=== PATIENT | male | born 1955 | race African-American/Black ===

== ENCOUNTER → 2018-06-12 | Outpatient (CLI) | payer OTHER ==
[2018-06-12 11:18] LABS: ABSOLUTE EOSINOPHILS # (AUTO) 0.1 10^3/uL (0.0-0.6); ABSOLUTE LYMPHOCYTES (AUTO) 1.3 10^3/uL (0.5-4.7); ABSOLUTE MONOCYTES (AUTO) 0.6 10^3/uL (0.1-1.4); ABSOLUTE NEUT (AUTO) 2.1 10^3/uL (1.7-8.2); BASOPHILS % (AUTO) 0.6 % (0-2); EOSINOPHILS % (AUTO) 3.1 % (0-6); HEMATOCRIT 34.4 % (37.9-51.0); HEMOGLOBIN 11.7 g/dL (13.5-17.0); LYMPHOCYTES % (AUTO) 30.9 % (13-45); MEAN CORPUSCULAR HEMOGLOBIN 30.4 pg (27.0-33.4); MEAN CORPUSCULAR HGB CONC 34.1 g/dL (32.0-36.0); MEAN CORPUSCULAR VOLUME 89 fl (80-97); MONOCYTES % (AUTO) 13.6 % (3-13); PLATELET COUNT 175 10^3/uL (150-450); RED BLOOD COUNT 3.86 10^6/uL (4.35-5.55); RED CELL DISTRIBUTION WIDTH 13.9 % (11.5-14.0); SEGMENTED NEUTROPHILS % (AUTO) 51.8 % (42-78); TOTAL CELLS COUNTED % (AUTO) 100 %; WHITE BLOOD COUNT 4.1 10^3/uL (4.0-10.5)
[2018-06-12 11:44] LABS: ALANINE AMINOTRANSFERASE 30 U/L (21-72); ALBUMIN 4.6 g/dL (3.5-5.0); ALKALINE PHOSPHATASE 83 U/L (38-126); ANION GAP 12 (5-19); ASPARTATE AMINO TRANSFERASE 34 U/L (17-59); BILIRUBIN,DIRECT 0.1 mg/dL (0.0-0.4); BILIRUBIN,TOTAL 0.4 mg/dL (0.2-1.3); BLOOD UREA NITROGEN 29 mg/dL (7-20); CALCIUM 9.6 mg/dL (8.4-10.2); CARBON DIOXIDE 32 mmol/L (22-30); CHLORIDE 101 mmol/L (98-107); CHOLESTEROL 135.16 mg/dL (0-200); GLUCOSE 91 mg/dL (75-110); POTASSIUM 3.9 mmol/L (3.6-5.0); SODIUM 144.6 mmol/L (137-145); TOTAL PROTEIN 7.7 g/dL (6.3-8.2); TRIGLYCERIDES 61 mg/dL (<150); URIC ACID 11.3 mg/dL (3.5-8.5)
[2018-06-12 11:55] LABS: DIRECT LDL 67 mg/dL (<100)
== END ==
LOC: CCC 10:04
DX: I25.10 Atherosclerotic heart disease of native coronary artery without angina pectoris (principal); I10 Essential (primary) hypertension; I50.1 Left ventricular failure, unspecified
CPT/HCPCS: 36415; 80053; 80061; 83735; 84550; 85025

== ENCOUNTER 2018-07-06 11:24 | Observation (INO) | payer OTHER ==
[2018-07-06] MEDS ORDERED: ASPIRIN 81 MG TABLET, CHEWABLE PO ONE (11:49)
--- NOTE | 2018-07-06 11:56 | ER Document Report ---
ED General - General Chief Complaint: Dizziness Stated Complaint: DIZZY Time Seen by Provider: 07/06/18 11:42 Mode of Arrival: Medic Information source: Patient, Emergency Med Personnel Notes: Patient is a 63-year-old male who presents to the emergency department via EMS from the [facility] with complaints of dizziness and chest pain. Patient has a significant cardiac history to include hypertension, hyperlipidemia, myocardial infarction and pacemaker. Patient reports this feels similar to when he has had an OH in the past. 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 He does report being compliant with his medications. Patient stated to the nurse and EMS that the pain radiated from his mid chest into his left arm. At the time of arrival patient reports the pain has resolved. TRAVEL OUTSIDE OF THE [place] IN LAST 30 DAYS: No Past Medical History - General Information source: Patient, Law Enforcement - Social History Smoking Status: Unknown if Ever Smoked Frequency of alcohol use: None Drug Abuse: None Family History: None - Past Medical History Cardiac Medical History: Reports: Hx Congestive Heart Failure, Hx Coronary Artery Disease, Hx Heart Attack, Hx Hypercholesterolemia, Hx Hypertension, Hx Peripheral Vascular Disease Past Surgical History: Reports: Hx Pacemaker - AICD Review of Systems - Review of Systems Cardiovascular: Chest pain, Heart racing, Dizziness, Lightheaded -: Yes All other systems reviewed and negative Physical Exam - Vital signs Vitals: Resp Pulse Ox 26 H 97 07/06/18 11:33 07/06/18 11:33 - Notes Notes: PHYSICAL EXAMINATION: GENERAL: Well-appearing, well-nourished and in no moderate distress. HEAD: Atraumatic, normocephalic. EYES: Pupils equal round and reactive to light, extraocular movements intact, sclera anicteric, conjunctiva are normal. ENT: Nares patent, oropharynx clear without exudates. Moist mucous membranes. NECK: Normal range of motion, supple without lymphadenopathy LUNGS: Breath sounds clear to auscultation bilaterally and equal. No wheezes rales or rhonchi. HEART: Regular rate and rhythm without murmurs ABDOMEN: Soft, nontender, nondistended abdomen. No guarding, no rebound. No masses appreciated. Musculoskeletal: Normal range of motion, no pitting or edema. No cyanosis. NEUROLOGICAL: Cranial nerves grossly intact. Normal speech. Normal sensory, motor exams PSYCH: Normal mood, normal affect. SKIN: Warm, Dry, normal turgor, no rashes or lesions noted. Course - Re-evaluation Re-evalutation: 07/06/18 12:08 Called to patient's bedside as patient is having an episode of hypotension with an arrhythmia. Monitor shows short run of ventricular tachycardia, it lasted approximately one minute. By the time I was at the bedside patient had resumed his original cardiac rhythm. 07/06/18 12:30 Stated the patient's bedside for some time, patient remains stable, blood pressure improving, patient is sinus tach on the monitor heart rate 105, no evidence of ventricular tachycardia since the isolated incident earlier. Dr. Payne has been to the bedside to evaluate the patient as well. 07/06/18 13:45 CBC is unremarkable. Initial set of cardiac enzymes are negative. Patient does have elevated BUN and creatinine however this is unchanged from his baseline on record at [place]. EKG with no ST segment elevations or depressions. Ventricular paced rhythm. Chest x-ray with cardiomegaly but an otherwise unremarkable with no evidence of CHF. 07/06/18 14:24 Patient resting comfortably, states that his symptoms have now resolved. Patient's heart rate is 64, pulse ox is 100% on 2 L, blood pressure 117/84. Hepatitis profile and HIV testing were obtained from this patient with his consent as one of the EMS workers suffered a needlestick while starting the patient's IV. 07/06/18 14:[address] Martin who agrees to accept patient for admission. 07/06/18 14:[address] Parham, he will call back if patient can be accepted for admission. 07/06/18 15:15 Patient discussed with hospitalist again and accepted for admission by Dr. Liu. - Vital Signs Vital signs: Temp Pulse Resp BP Pulse Ox 18 123/84 99 07/06/18 12:30 07/06/18 12:30 07/06/18 12:30 - Laboratory Result Diagrams: 07/06/18 11:40 07/06/18 12:22 Laboratory results interpreted by me: 07/06/18 07/06/18 11:40 12:22 RDW 14.3 H Monocytes % 14.3 H Chloride 96 L BUN 24 H Creatinine 1.68 H Est GFR ( Amer) 51 L Est GFR (Non-Af Amer) 42 L ALT 18 L Creatine Kinase 532 H Total Protein 8.3 H Critical Care Note - Critical Care Note Total time excluding time spent on procedures (mins): 30 - Multiple re- evaluations Discharge - Discharge Clinical Impression: Chest pain Qualifiers: Chest pain type: unspecified Qualified Code(s): R07.9 - Chest pain, unspecified Hypotension Qualifiers: Hypotension type: unspecified hypotension type Qualified Code(s): I95.9 - Hypotension, unspecified Arrhythmia Qualifiers: Arrhythmia type: unspecified cardiac arrhythmia Qualified Code(s): I49.9 - Cardiac arrhythmia, unspecified Condition: Stable Disposition: ADMITTED OBSERVATION Admitting Provider: [place] Hospitalist - [facility] Admitted: Telemetry
[2018-07-06 12:02] LABS: ABSOLUTE EOSINOPHILS # (AUTO) 0.1 10^3/uL (0.0-0.6); ABSOLUTE LYMPHOCYTES (AUTO) 1.5 10^3/uL (0.5-4.7); ABSOLUTE MONOCYTES (AUTO) 0.8 10^3/uL (0.1-1.4); ABSOLUTE NEUT (AUTO) 3.1 10^3/uL (1.7-8.2); BASOPHILS % (AUTO) 0.8 % (0-2); EOSINOPHILS % (AUTO) 1.7 % (0-6); HEMATOCRIT 40.9 % (37.9-51.0); HEMOGLOBIN 13.9 g/dL (13.5-17.0); LYMPHOCYTES % (AUTO) 26.4 % (13-45); MEAN CORPUSCULAR HEMOGLOBIN 30.2 pg (27.0-33.4); MEAN CORPUSCULAR VOLUME 89 fl (80-97); MONOCYTES % (AUTO) 14.3 % (3-13); PLATELET COUNT 230 10^3/uL (150-450); RED CELL DISTRIBUTION WIDTH 14.3 % (11.5-14.0); SEGMENTED NEUTROPHILS % (AUTO) 56.8 % (42-78); TOTAL CELLS COUNTED % (AUTO) 100 %; WHITE BLOOD COUNT 5.5 10^3/uL (4.0-10.5)
[2018-07-06] MEDS ORDERED: NORMAL SALINE 1000 ML 500 ML IV ONE (12:02)
--- NOTE | 2018-07-06 12:45 | RADIOLOGY REPORT (SQ) ---
EXAM DESCRIPTION: CHEST SINGLE VIEW COMPLETED DATE/TIME: 07/06/2018 12:35 pm REASON FOR STUDY: chest pain COMPARISON: None. NUMBER OF VIEWS: One view. TECHNIQUE: Single frontal radiographic view of the chest acquired. LIMITATIONS: None. FINDINGS: LUNGS AND PLEURA: No opacities, masses or pneumothorax. No pleural effusion. MEDIASTINUM AND HILAR STRUCTURES: No masses. Contour normal. HEART AND VASCULAR STRUCTURES: Heart enlarged without failure. Normal vasculature. BONES: No acute findings. HARDWARE: Cardiac pacemaker defibrillator. OTHER: No other significant finding. IMPRESSION: HEART ENLARGED WITHOUT FAILURE. NO OTHER SIGNIFICANT RADIOGRAPHIC FINDING IN THE CHEST. TECHNICAL DOCUMENTATION: JOB ID: [id number] [employer]- All Rights Reserved Reading location - IP/workstation name: [email or web address]
[2018-07-06 13:13] LABS: ALANINE AMINOTRANSFERASE 18 U/L (21-72); ALBUMIN 4.9 g/dL (3.5-5.0); ALKALINE PHOSPHATASE 100 U/L (38-126); ANION GAP 14 (5-19); ASPARTATE AMINO TRANSFERASE 32 U/L (17-59); BILIRUBIN,DIRECT 0.2 mg/dL (0.0-0.4); BILIRUBIN,TOTAL 0.6 mg/dL (0.2-1.3); BLOOD UREA NITROGEN 24 mg/dL (7-20); CALCIUM 9.9 mg/dL (8.4-10.2); CARBON DIOXIDE 30 mmol/L (22-30); CHLORIDE 96 mmol/L (98-107); CREATINE KINASE 532 U/L (55-170); GLUCOSE 108 mg/dL (75-110); POTASSIUM 4.3 mmol/L (3.6-5.0); SODIUM 139.5 mmol/L (137-145); TOTAL PROTEIN 8.3 g/dL (6.3-8.2)
[2018-07-06 13:21] LABS: CREATINE KINASE MB 0.78 ng/mL (<4.55)
--- NOTE | 2018-07-06 13:24 | EKG REPORT ---
SEVERITY:- ABNORMAL ECG - ATRIAL-SENSED VENTRICULAR-PACED COMPLEXES : Confirmed by: Jesus Stallworth MD 06-Jul-2018 13:23:51
[2018-07-06 13:26] LABS: TROPONIN I < 0.012 ng/mL
--- NOTE | 2018-07-06 16:23 | PDOC H&P ---
History of Present Illness Admission Date/PCP: 07/06/18 15:18 MAC FERNANDEZ MD History of Present Illness: PAMELA PRESCOTT is a 63 year old male who is brought over from the [facility] with complaints of dizziness and cramps. He said it has been going on intermittently for about a week. The patient denied any complaints of chest pain or palpitations. At one point here he had an episode of tachycardia where his heart rate went up into the 130s, and his blood pressure was a little bit low with a systolic in the upper 70s. He got a bag of IV fluids and his heart rate came down to the mid 70s and his systolic blood pressure came up into the 130s. He is asymptomatic at the time I saw him. He is in a paced rhythm on the monitor. The ER provider was not comfortable sending him back to [facility]. I am admitting him for observation. Past Medical History Cardiac Medical History: Reports: Congestive Heart Failure, Coronary Artery Disease, Myocardial Infarction, Hyperlipidema, Hypertension, Peripheral Vascular Disease Past Surgical History Past Surgical History: Reports: Pacemaker - AICD Social History Smoking Status: Unknown if Ever Smoked Family History Family History: None Parental Family History Reviewed: Yes - Noncontributory Children Family History Reviewed: Yes - Noncontributory Sibling(s) Family History Reviewed.: Yes - Noncontributory Review of Systems All systems: reviewed and no additional remarkable complaints except as stated - 10 point review of systems was conducted with the patient and was negative except as noted above Physical Exam Vital Signs: Temp Pulse Resp BP Pulse Ox 18 123/84 99 07/06/18 12:30 07/06/18 12:30 07/06/18 12:30 General appearance: PRESENT: no acute distress, cooperative, disheveled Head exam: PRESENT: atraumatic, normocephalic Eye exam: PRESENT: EOMI, PERRLA. ABSENT: conjunctival injection, nystagmus, scleral icterus Ear exam: PRESENT: normal external ear exam Mouth exam: PRESENT: moist, neck supple Throat exam: ABSENT: post pharyngeal erythema Neck exam: PRESENT: full ROM. ABSENT: carotid bruit, JVD, lymphadenopathy, meningismus, tenderness, thyromegaly Respiratory exam: PRESENT: clear to auscultation elena, symmetrical, unlabored. ABSENT: accessory muscle use, chest wall tenderness, crackles, prolonged expiratory phas, rhonchi, stridor, tachypnea, wheezes Cardiovascular exam: PRESENT: RRR, +S1, +S2. ABSENT: diastolic murmur, systolic murmur Vascular exam: PRESENT: normal capillary refill GI/Abdominal exam: PRESENT: normal bowel sounds, soft. ABSENT: distended, guarding, rebound, tenderness Extremities exam: ABSENT: clubbing, pedal edema Musculoskeletal exam: PRESENT: normal inspection. ABSENT: deformity Neurological exam: PRESENT: alert, awake, oriented to person, oriented to place , oriented to time, oriented to situation, CN II-XII grossly intact. ABSENT: motor sensory deficit Psychiatric exam: PRESENT: appropriate affect, normal mood Skin exam: PRESENT: dry, warm Results Impressions: Chest X-Ray 07/06/18 11:49 IMPRESSION: HEART ENLARGED WITHOUT FAILURE. NO OTHER SIGNIFICANT RADIOGRAPHIC FINDING IN THE CHEST. Assessment & Plan - Diagnosis (1) Dehydration Is this a current diagnosis for this admission?: Yes Plan: I do not think what they saw on the monitor was actually V. tach. Instead, I think what they saw was a paced rhythm that got fast on the monitor, and when that happens it looks like V. tach when it actually is not. He got some IV fluids and his heart rate came down his blood pressure came up. I think he was intravascularly volume depleted. We will can give him some more IV fluids, put him on a monitor, and watch him overnight. If he does not have any events overnight we will send [facility] to [facility] in [facility] morning. - Time Time Spent: 50 to 70 Minutes
[2018-07-07 07:14] LABS: ANION GAP 9 (5-19); BLOOD UREA NITROGEN 21 mg/dL (7-20); CALCIUM 9.1 mg/dL (8.4-10.2); CARBON DIOXIDE 29 mmol/L (22-30); CHLORIDE 100 mmol/L (98-107); GLUCOSE 107 mg/dL (75-110); POTASSIUM 3.8 mmol/L (3.6-5.0); SODIUM 137.6 mmol/L (137-145)
[2018-07-07 07:41] LABS: HEPATITIS C VIRUS AB <0.1 s/co ratio (0.0-0.9)
[2018-07-07 08:11] LABS: HEPATITS B SURFACE ANTIGEN Negative (Negative)
[2018-07-07] MEDS ORDERED: ENOXAPARIN SODIUM INJ 30 MG/0.3 ML DISP.SYRIN SUBCUT SCH (10:00)
[2018-07-07] MEDS ORDERED: SPIRONOLACTONE 25 MG TABLET PO SCH (12:00)
[2018-07-07] MEDS ORDERED: LOSARTAN POTASSIUM 50 MG TABLET PO SCH (12:00)
[2018-07-07] MEDS ORDERED: AMLODIPINE BESYLATE 5 MG TABLET PO SCH (12:00)
[2018-07-07] MEDS ORDERED: ASPIRIN 81 MG TABLET, ENT COATED PO SCH (12:00)
[2018-07-07] MEDS ORDERED: METOPROLOL SUCCINATE 50 MG TAB.SR.24H PO SCH (12:00)
[2018-07-07] MEDS ORDERED: ISOSORBIDE MONONITRATE 60 MG TAB.ER.24H PO SCH (12:00)
[2018-07-07] MEDS ORDERED: TORSEMIDE 20 MG TABLET PO SCH (13:00)
[2018-07-07] MEDS ORDERED: HYDRALAZINE HCL 25 MG TABLET PO SCH (14:00)
[2018-07-07 14:34] VITALS: BP 118/64
[2018-07-07] MEDS ORDERED: CALCIUM POLYCARBOPHIL PO SCH (18:00)
[2018-07-07] MEDS ORDERED: GUAIFENESIN 600 MG TABLET.SA PO SCH (18:00)
[2018-07-07] MEDS ORDERED: ATORVASTATIN CALCIUM 40 MG TABLET PO SCH (18:00)
[2018-07-07] MEDS ORDERED: (PENDING PHARMACY ID) (Guaifenesin [Mucinex] 600 MG) PO SCH (18:00)
--- NOTE | 2018-07-07 19:01 | PDOC DISCHARGE SUMMARY ---
General - Admit/Disc Date/PCP Admission Date/Primary Care Provider: 07/06/18 15:18 MAC FERNANDEZ MD Discharge Date: 07/07/18 - Discharge Diagnosis (1) Dehydration Is this a current diagnosis for this admission?: Yes Summary: He responded very well to some IV fluids. His heart rate went down, his blood pressure went up, and his creatinine came down this morning. He is on daily diuretics, and was cautioned to make sure that he was able to check his weight every day so that he no whether or not he was losing too much weight getting dehydrated. - Additional Information Resuscitation Status: Full Code Discharge Diet: Cardiac Discharge Activity: Activity As Tolerated Home Medications: Amlodipine Besylate [Norvasc 5 mg Tablet] 5 mg PO QAM 07/06/18 Aspirin [Adult Aspirin] 81 mg PO DAILY 07/06/18 Atorvastatin Calcium [Lipitor 40 mg Tablet] 40 mg PO QPM 07/06/18 Calcium Polycarbophil [Fiber Tabs 625 mg Tablet] 2 tab PO BID 07/06/18 Guaifenesin [Mucinex] 600 mg PO QPM 07/06/18 Hydralazine HCl [Apresoline 25 mg Tablet] 25 mg PO TID 07/06/18 Isosorbide Mononitrate [Imdur 60 mg Tablet.er] 60 mg PO DAILY 07/06/18 Losartan Potassium [Cozaar 50 mg Tablet] 50 mg PO QAM 07/06/18 Metoprolol Succinate [Toprol Xl 50 mg Tab.sr] 50 mg PO QAM 07/06/18 Spironolactone [Aldactone 25 mg Tablet] 25 mg PO QAM 07/06/18 Torsemide [Demadex 20 mg Tablet] 40 mg PO BID 07/06/18 History of Present Illness History of Present Illness: PAMELA PRESCOTT is a 63 year old male who is brought over from the [facility] with complaints of dizziness and cramps. He said it has been going on intermittently for about a week. The patient denied any complaints of chest pain or palpitations. At one point here he had an episode of tachycardia where his heart rate went up into the 130s, and his blood pressure was a little bit low with a systolic in the upper 70s. He got a bag of IV fluids and his heart rate came down to the mid 70s and his systolic blood pressure came up into the 130s. He is asymptomatic at the time I saw him. He is in a paced rhythm on the monitor. The ER provider was not comfortable sending him back to [facility]. I am admitting him for observation. Hospital Course Hospital Course: We gave him some IV fluids and put him on his usual home medications. He had no adverse events overnight. His creatinine came down this morning. His heart rate remained in normal range he maintained a normal blood pressure. I suspect he was just dehydrated from his diuretics and was probably not monitoring his weight so that he could tell that he was dropping weight from day-to-day. I have in the monitor his weight on a daily basis so that he can tell whether or not he is dropping too much weight from one day to the next. His labs and examination were reassuring and he was discharged today in good condition. Physical Exam Vital Signs: Temp Pulse Resp BP Pulse Ox 97.8 F 68 16 118/64 100 07/07/18 14:32 07/07/18 14:32 07/07/18 14:32 07/07/18 14:32 07/07/18 14:32 Intake & Output 07/06/18 07/07/18 07/08/18 06:59 06:59 06:59 Intake Total 500 Balance 500 Weight 109.7 kg General appearance: PRESENT: no acute distress, cooperative, disheveled Respiratory exam: PRESENT: clear to auscultation elena, symmetrical, unlabored. ABSENT: accessory muscle use, chest wall tenderness, crackles, prolonged expiratory phas, rhonchi, stridor, tachypnea, wheezes Cardiovascular exam: PRESENT: RRR, +S1, +S2. ABSENT: diastolic murmur, systolic murmur Vascular exam: PRESENT: normal capillary refill GI/Abdominal exam: PRESENT: normal bowel sounds, soft. ABSENT: distended, guarding, rebound, tenderness Extremities exam: ABSENT: clubbing, pedal edema Musculoskeletal exam: PRESENT: normal inspection. ABSENT: deformity Neurological exam: PRESENT: alert, awake, oriented to person, oriented to place , oriented to time, oriented to situation Psychiatric exam: PRESENT: appropriate affect, normal mood Skin exam: PRESENT: dry, warm Results Laboratory Results: 07/07/18 06:46 07/07/18 06:46 Sodium 137.6 Potassium 3.8 Chloride 100 Carbon Dioxide 29 Anion Gap 9 BUN 21 H Creatinine 1.27 H Est GFR ( Amer) > 60 Est GFR (Non-Af Amer) 58 L Glucose 107 Calcium 9.1 07/06/18 16:08 Troponin I < 0.012 Impressions: Chest X-Ray 07/06/18 11:49 IMPRESSION: HEART ENLARGED WITHOUT FAILURE. NO OTHER SIGNIFICANT RADIOGRAPHIC FINDING IN THE CHEST. Qualifiers - * PATIENT BEING DISCHARGED WITH ANY OF THE FOLLOWING DIAGNOSIS: No
== END 2018-07-07 15:10 ==
LOC: ER 11:24 → EH 15:18 → EEVIPCON 15:18 → INTOOBSV 15:18 → 3S 18:15
PROVIDERS: ADMIT Internal Medicine; ATTEND Internal Medicine
DX: E86.0 Dehydration (principal); R07.9 Chest pain, unspecified; I95.9 Hypotension, unspecified; I49.9 Cardiac arrhythmia, unspecified; I25.10 Atherosclerotic heart disease of native coronary artery without angina pectoris; I73.9 Peripheral vascular disease, unspecified; E78.5 Hyperlipidemia, unspecified; I10 Essential (primary) hypertension; I25.2 Old myocardial infarction; Z79.82 Long term (current) use of aspirin; Z79.899 Other long term (current) drug therapy; Z95.810 Presence of automatic (implantable) cardiac defibrillator
CPT/HCPCS: 93005; 99291; 96360; 96361; 36415 ×2; 82553; 82550; 85025; 80048; 80053; 84484; 87340; 86701; 86803; 86804; 83880; 71045; 93010; J3490 ×2; J1650; J7030

== ENCOUNTER 2018-08-18 07:06 | Emergency (ER) | payer OTHER ==
[2018-08-18] MEDS ORDERED: NORMAL SALINE 1000 ML 1,000 ML IV ONE (07:18)
[2018-08-18] MEDS ORDERED: MECLIZINE HCL 25 MG TABLET PO ONE (07:19)
[2018-08-18] MEDS ORDERED: DIAZEPAM INJ 10 MG/2 ML DISP.SYRIN IV ONE (07:19)
--- NOTE | 2018-08-18 07:26 | ER Document Report ---
ED General - General Stated Complaint: HEART ISSUES Time Seen by Provider: 08/18/18 07:11 Primary Care Provider: MAC FERNANDEZ MD [HONORARY] - Follow up as needed Notes: 63-year-old male with history of coronary artery disease CHF and vertigo presents to the ER complaining of rapid heart rate palpitations and vertigo. Patient stated this began yesterday he said the room was been spinning and he has been very nauseous. The patient denies any fever chills cough or sore throat. The patient denies any extremity numbness tingling weakness no chest pain. States he felt a little short of breath when he is more anxious and nauseous from the dizziness. He denies headache. Denies abdominal pain. Denies diarrhea denies fever chills patient is incarcerated was brought in by police. TRAVEL OUTSIDE OF THE [place] IN LAST 30 DAYS: No - Related Data Allergies/Adverse Reactions: lisinopril Allergy (Verified 08/18/18 07:33) Past Medical History - Social History Smoking Status: Unknown if Ever Smoked Family History: None - Past Medical History Cardiac Medical History: Reports: Hx Congestive Heart Failure, Hx Coronary Artery Disease, Hx Heart Attack, Hx Hypercholesterolemia, Hx Hypertension, Hx Peripheral Vascular Disease Renal/ Medical History: Denies: Hx Peritoneal Dialysis Psychiatric Medical History: Reports: Hx Depression Past Surgical History: Reports: Hx Pacemaker - AICD Review of Systems - Review of Systems Constitutional: denies: Chills, Fever Cardiovascular: Palpitations, Heart racing, Dyspnea. denies: Chest pain Respiratory: Short of breath. denies: Cough Gastrointestinal: Nausea. denies: Vomiting Neurological/Psychological: Other - Dizziness and vertigo -: Yes All other systems reviewed and negative Physical Exam - Vital signs Vitals: Pulse Ox 96 08/18/18 07:18 - Notes Notes: GENERAL_APPEARANCE: well_nourished, alert, cooperative, patient looks very uncomfortable. VITALS: reviewed, see vital signs table. HEAD: no_swelling\tenderness on the head. EYES: PERRL, EOMI, conjunctiva_clear. Was on nystagmus on head motion NOSE: no_nasal_discharge. MOUTH: (-)decreased moisture. THROAT: no_tonsilar_inflammation, no_airway_obstruction. no_lymphadenopathy NECK: supple, no_neck_tenderness, (-)thyromegaly. BACK: no_back_tenderness. CHEST_WALL: no_chest_tenderness. LUNGS: no_wheezing, no_rales, no_rhonchi, (-)accessory muscle use, good air exchange bilateral. HEART: Rapid_rate, normal_rhythm, normal_S1, normal_S2, (-)S3, (-)S4, no_murmur, no_rub. ABDOMEN: normal_BS, soft, no_abd_tenderness, (-)guarding, (-)rebound, no_organomegaly, no_abd_masses. EXTREMITIES: good pulses in all_extremities, no_swelling\tenderness in the extremities, no_edema. SKIN: warm, dry, good_color, no_rash. MENTAL_STATUS: speech_clear, oriented_X_3, normal_affect, responds_appropriately to questions. NEURO: Neg Motor or Sensory Deficits on exam, CN 2-12 intact, DTR 2+ symmetric x 4, No cerbellar signs Course - Re-evaluation Re-evalutation: 08/18/18 07:26 63-year-old male with history of CAD CHF and vertigo presents with a severe episode of vertigo. Patient is very anxious. We will give him a meclizine IV fluids Valium. Will CT his head to look for any kind of intracranial abnormalities. Chest x-ray enzymes. 08/18/18 10:05 CT scan was normal blood work fairly unremarkable some for mildly elevated sodium which is likely due to dehydration. Patient felt much better after Valium and meclizine. Vertigo is improved. We will put him on meclizine for the next several days. - Vital Signs Vital signs: Temp Pulse Resp BP Pulse Ox 98.2 F 16 139/59 H 100 08/18/18 07:42 08/18/18 08:01 08/18/18 08:01 08/18/18 08:01 - Laboratory Result Diagrams: 08/18/18 07:20 08/18/18 07:20 Laboratory results interpreted by me: 08/18/18 08/18/18 07:20 07:20 RBC 4.16 L Hgb 12.4 L Hct 35.8 L Sodium 146.0 H - Diagnostic Test Radiology reviewed: Reports reviewed Radiology results interpreted by me: 08/18/18 10:06 Chest X-Ray 08/18/18 07:18 IMPRESSION: 1. No significant interval changes since the prior examination dated 07/06/2018. No acute findings. Head CT 08/18/18 07:18 IMPRESSION: No acute intracranial abnormality TECHNICAL DOCUMENTATION: Quality ID # 436: Final reports with documentation of one or more dose reduction techniques (e.g., Automated exposure control, adjustment of the mA and/or kV according to patient size, use of iterative reconstruction technique) copyright 2011 [employer]- All Rights Reserved - EKG Interpretation by Me Rate: Tachycardia Rhythm: Other - Atrial paced Discharge - Discharge Clinical Impression: Dehydration, Vertigo Disposition: HOME, SELF-CARE Instructions: Meclizine ([facility]), Vertigo ([facility]) Prescriptions: Meclizine HCl [Antivert 25 mg Tablet] 25 mg PO TID PRN #21 tablet PRN Reason: Referrals: MAC FERNANDEZ MD [HONORARY] - Follow up as needed
--- NOTE | 2018-08-18 07:38 | EKG REPORT ---
SEVERITY:- ABNORMAL ECG - ATRIAL-SENSED VENTRICULAR-PACED RHYTHM : Confirmed by: Jesus Stallworth MD 18-Aug-2018 07:38:05
[2018-08-18 07:49] LABS: ABSOLUTE BASOPHILS # (AUTO) 0.1 10^3/uL (0.0-0.2); ABSOLUTE EOSINOPHILS # (AUTO) 0.1 10^3/uL (0.0-0.6); ABSOLUTE LYMPHOCYTES (AUTO) 1.8 10^3/uL (0.5-4.7); ABSOLUTE MONOCYTES (AUTO) 0.5 10^3/uL (0.1-1.4); ABSOLUTE NEUT (AUTO) 2.9 10^3/uL (1.7-8.2); BASOPHILS % (AUTO) 0.9 % (0-2); EOSINOPHILS % (AUTO) 1.3 % (0-6); HEMATOCRIT 35.8 % (37.9-51.0); HEMOGLOBIN 12.4 g/dL (13.5-17.0); LYMPHOCYTES % (AUTO) 34.1 % (13-45); MEAN CORPUSCULAR HEMOGLOBIN 29.8 pg (27.0-33.4); MEAN CORPUSCULAR HGB CONC 34.5 g/dL (32.0-36.0); MEAN CORPUSCULAR VOLUME 86 fl (80-97); MONOCYTES % (AUTO) 9.1 % (3-13); PLATELET COUNT 208 10^3/uL (150-450); RED BLOOD COUNT 4.16 10^6/uL (4.35-5.55); SEGMENTED NEUTROPHILS % (AUTO) 54.6 % (42-78); TOTAL CELLS COUNTED % (AUTO) 100 %; WHITE BLOOD COUNT 5.4 10^3/uL (4.0-10.5)
[2018-08-18 07:56] LABS: ALANINE AMINOTRANSFERASE 26 U/L (21-72); ALBUMIN 4.6 g/dL (3.5-5.0); ALKALINE PHOSPHATASE 126 U/L (38-126); ANION GAP 12 (5-19); ASPARTATE AMINO TRANSFERASE 25 U/L (17-59); BILIRUBIN,DIRECT 0.1 mg/dL (0.0-0.4); BILIRUBIN,TOTAL 0.5 mg/dL (0.2-1.3); BLOOD UREA NITROGEN 11 mg/dL (7-20); CARBON DIOXIDE 28 mmol/L (22-30); CHLORIDE 106 mmol/L (98-107); GLUCOSE 106 mg/dL (75-110); POTASSIUM 3.8 mmol/L (3.6-5.0); TOTAL PROTEIN 7.8 g/dL (6.3-8.2)
[2018-08-18 07:57] LABS: PROTHROMBIN TIME 13.7 SEC (11.4-15.4)
--- NOTE | 2018-08-18 08:24 | RADIOLOGY REPORT (SQ) ---
EXAM DESCRIPTION: CHEST SINGLE VIEW COMPLETED DATE/TIME: 08/18/2018 7:48 am REASON FOR STUDY: dizzy - high hr COMPARISON: 07/06/2018 EXAM PARAMETERS: NUMBER OF VIEWS: One view. TECHNIQUE: Single frontal radiographic view of the chest acquired. RADIATION DOSE: NA LIMITATIONS: None. FINDINGS: LUNGS AND PLEURA: Low lung volumes. No opacities, masses or pneumothorax. No pleural eff usion. MEDIASTINUM AND HILAR STRUCTURES: No masses. Contour normal. HEART AND VASCULAR STRUCTURES: Cardiomegaly, unchanged finding. BONES: No acute findings. HARDWARE: Cardiac pacemaker defibrillator, stable finding. OTHER: No other significant finding. IMPRESSION: 1. No significant interval changes since the prior examination dated 07/06/2018. No ac shonda findings. TECHNICAL DOCUMENTATION: JOB ID: [id number] [employer]- All Rights Reserved Reading location - IP/workstation name: [email or web address]
--- NOTE | 2018-08-18 08:27 | RADIOLOGY REPORT (SQ) ---
EXAM DESCRIPTION: CT HEAD WITHOUT IV CONTRAST COMPLETED DATE/TME: 08/18/2018 07:18 CLINICAL HISTORY: 63 years, Male, dizziness COMPARISON: None. TECHNIQUE: Axial CT images of the brain were obtained without contrast. Sagittal and coronal reformats were performed. [facility] [id number] Images stored on PACS. All CT scanners at this facility use dose modulation, iterative reconstruction, and/or weight based dosing when appropriate to reduce radiation dose to as low as reasonably achievable (ALARA). [facility]: Dose Right [facility]: CareDose [facility]: Dose Right [facility]: Teradose 4D [facility]: [employer] LIMITATIONS: None. FINDINGS: There is no acute infarct, hemorrhage, mass, edema, hydrocephalus, or extra-axial fluid collection. The pantoja-white matter differentiation is preserved. The paranasal sinuses and mastoid air cells are clear. IMPRESSION: No acute intracranial abnormality TECHNICAL DOCUMENTATION: Quality ID # [id number]: Final reports with documentation of one or more dose reduction techniques (e.g., Automated exposure control, adjustment of the mA and/or kV according to patient size, use of iterative reconstruction technique) copyright 2011 [employer]- All Rights Reserved
[2018-08-18 10:44] VITALS: BP 145/79
== END 2018-08-18 10:45 | disposition home or self-care (01) ==
LOC: ER 07:06 → EEVIPCON 07:06 → ER 10:45
DX: E86.0 Dehydration (principal); R42 Dizziness and giddiness; R00.2 Palpitations; R06.02 Shortness of breath; F41.9 Anxiety disorder, unspecified; R11.0 Nausea; I25.10 Atherosclerotic heart disease of native coronary artery without angina pectoris; I50.9 Heart failure, unspecified; I11.0 Hypertensive heart disease with heart failure; Z95.0 Presence of cardiac pacemaker
CPT/HCPCS: 93005; 99285; 96361; 96374; 36415; 83735; 85025; 85610; 80053; 84484; 71045; 70450; 93010; J3360; J7030

== ENCOUNTER → 2018-10-06 | Outpatient (CLI) | payer OTHER ==
[2018-10-06 17:36] LABS: ABSOLUTE EOSINOPHILS # (AUTO) 0.1 10^3/uL (0.0-0.6); ABSOLUTE LYMPHOCYTES (AUTO) 1.2 10^3/uL (0.5-4.7); ABSOLUTE MONOCYTES (AUTO) 0.4 10^3/uL (0.1-1.4); ABSOLUTE NEUT (AUTO) 2.7 10^3/uL (1.7-8.2); BASOPHILS % (AUTO) 0.5 % (0-2); HEMATOCRIT 30.9 % (37.9-51.0); HEMOGLOBIN 10.6 g/dL (13.5-17.0); LYMPHOCYTES % (AUTO) 27.2 % (13-45); MEAN CORPUSCULAR HEMOGLOBIN 29.8 pg (27.0-33.4); MEAN CORPUSCULAR HGB CONC 34.3 g/dL (32.0-36.0); MEAN CORPUSCULAR VOLUME 87 fl (80-97); MONOCYTES % (AUTO) 9.3 % (3-13); PLATELET COUNT 163 10^3/uL (150-450); RED BLOOD COUNT 3.55 10^6/uL (4.35-5.55); RED CELL DISTRIBUTION WIDTH 14.6 % (11.5-14.0); TOTAL CELLS COUNTED % (AUTO) 100 %; WHITE BLOOD COUNT 4.4 10^3/uL (4.0-10.5)
[2018-10-06 18:07] LABS: ANION GAP 8 (5-19); BLOOD UREA NITROGEN 14 mg/dL (7-20); CALCIUM 9.3 mg/dL (8.4-10.2); CARBON DIOXIDE 29 mmol/L (22-30); CHLORIDE 104 mmol/L (98-107); GLUCOSE 102 mg/dL (75-110); POTASSIUM 3.9 mmol/L (3.6-5.0); SODIUM 140.6 mmol/L (137-145)
== END ==
LOC: CCC 17:01
DX: I50.40 Unspecified combined systolic (congestive) and diastolic (congestive) heart failure (principal); I25.111 Atherosclerotic heart disease of native coronary artery with angina pectoris with documented spasm
CPT/HCPCS: 36415; 80048; 84550; 85025